=== PATIENT | female | born 1955 | race Caucasian/White ===

== ENCOUNTER 2018-01-13 11:07 | Inpatient (IN) | payer OTHER ==
[2018-01-13] MEDS: morphine 4 MG/ML VIAL IV (11:37)
[2018-01-13] MEDS: ONDANSETRON 4 MG INJ IV (11:38)
[2018-01-13] MEDS: SOD CHLORIDE 0.9% 1,000 ML IV (11:39)
[2018-01-13 11:47] LABS: ADD MAN DIFF? NO
[2018-01-13 11:48] LABS: WHITE BLOOD COUNT 6.1 10^3/ul (4.8-10.8)
[2018-01-13 11:48] LABS: BASOPHILS % 0.5 % (0.0-2.0); EOSINOPHILS % 0.7 % (0.0-7.0); HEMATOCRIT 34.5 % (37.0-47.0); HEMOGLOBIN 11.5 g/dl (12.0-16.0); LYMPHOCYTES # 1.7 10^3/ul (0.8-2.9); LYMPHOCYTES % 27.7 % (15.0-51.0); MEAN CORPUSCULAR HEMOGLOBIN 32.4 pg (29.0-33.0); MEAN CORPUSCULAR HGB CONC 33.3 g/dl (32.0-37.0); MEAN CORPUSCULAR VOLUME 97.2 fl (82.0-101.0); MEAN PLATELET VOLUME 10.6 fl (7.4-10.4); MONOCYTE # 0.3 10^3/ul (0.3-0.9); MONOCYTES % 5.4 % (0.0-11.0); NEUTROPHILS % 65.4 % (39.0-77.0); PLATELET COUNT 235 10^3/UL (140-415); RED BLOOD COUNT 3.55 10^6/ul (4.20-5.40); RED CELL DISTRIBUTION WIDTH 12.4 % (11.5-14.5)
[2018-01-13 12:07] LABS: INR 0.89; PROTIME 12.1 Sec (11.9-14.9); PT RATIO 0.9
[2018-01-13 12:09] LABS: ANION GAP 5 (5-13)
[2018-01-13 12:10] LABS: BLOOD UREA NITROGEN 17 mg/dl (7-20); CALCIUM 9.8 mg/dl (8.4-10.2); CARBON DIOXIDE 31 mmol/L (21-31); CHLORIDE 104 mmol/L (97-110); CREATINE KINASE 39 IU/L (23-200); CREATININE 0.48 mg/dl (0.44-1.00); GLUCOSE 240 mg/dl (70-220); POTASSIUM 4.5 mmol/L (3.5-5.1); SODIUM 140 mmol/L (135-144)
[2018-01-13] MEDS: IOHEXOL 300MG/ML 150 ML BTL (12:15)
[2018-01-13] MEDS: SOD CHLORIDE 0.9% 100 ML (12:16)
[2018-01-13] MEDS: IOHEXOL 100 ML (12:16)
[2018-01-13 12:20] LABS: B-TYPE NATRIURETIC PEPTIDE 170 PG/ML (0-125); CK INDEX 0.6; CK-MB < 0.22 ng/ml (0.0-2.4); TROPONIN-I < 0.012 ng/ml (0.000-0.120)
[2018-01-13] MEDS ORDERED: ONDANSETRON 4 MG INJ IV ×2 (13:30→14:00)
[2018-01-13] MEDS ORDERED: ACETAMINOPHEN 325 MG TAB PO (13:30)
[2018-01-13] MEDS: ASPIRIN 81 MG TAB PO (13:58)
[2018-01-13] MEDS ORDERED: NACL 0.9% 3 ML SYG IV (14:00)
[2018-01-13] MEDS: INSULIN ASPART [NOVOLOG] 3 ML PEN SC ×2 (17:30→20:20)
[2018-01-13] MEDS: metFORMIN 500 MG TAB PO (17:39)
[2018-01-13 17:57] LABS: CREATINE KINASE 42 IU/L (23-200)
[2018-01-13 18:09] LABS: CK INDEX 0.5; CK-MB < 0.22 ng/ml (0.0-2.4); TROPONIN-I < 0.012 ng/ml (0.000-0.120)
[2018-01-13] MEDS: ATORVASTATIN 40 MG TAB PO (20:19)
[2018-01-13 22:10] LABS: CREATINE KINASE 41 IU/L (23-200)
[2018-01-13 22:23] LABS: CK INDEX 0.5; CK-MB < 0.22 ng/ml (0.0-2.4); TROPONIN-I < 0.012 ng/ml (0.000-0.120)
[2018-01-13] MEDS: morphine 2 MG INJ IV (23:40)
[2018-01-14 00:06] LABS: CREATINE KINASE 43 IU/L (23-200)
[2018-01-14 00:19] LABS: CK INDEX 0.5; CK-MB < 0.22 ng/ml (0.0-2.4); TROPONIN-I < 0.012 ng/ml (0.000-0.120)
[2018-01-14 05:11] LABS: ADD MAN DIFF? NO
[2018-01-14 05:13] LABS: BASOPHILS % 0.5 % (0.0-2.0); EOSINOPHILS # 0.1 10^3/ul (0.0-0.5); EOSINOPHILS % 1.9 % (0.0-7.0); HEMATOCRIT 31.5 % (37.0-47.0); HEMOGLOBIN 10.5 g/dl (12.0-16.0); LYMPHOCYTES # 2.5 10^3/ul (0.8-2.9); LYMPHOCYTES % 38.9 % (15.0-51.0); MEAN CORPUSCULAR HEMOGLOBIN 32.5 pg (29.0-33.0); MEAN CORPUSCULAR HGB CONC 33.3 g/dl (32.0-37.0); MEAN CORPUSCULAR VOLUME 97.5 fl (82.0-101.0); MEAN PLATELET VOLUME 10.7 fl (7.4-10.4); MONOCYTE # 0.4 10^3/ul (0.3-0.9); MONOCYTES % 6.4 % (0.0-11.0); NEUTROPHIL # 3.3 10^3/ul (1.6-7.5); PLATELET COUNT 212 10^3/UL (140-415); RED BLOOD COUNT 3.23 10^6/ul (4.20-5.40); RED CELL DISTRIBUTION WIDTH 12.4 % (11.5-14.5)
[2018-01-14 05:13] LABS: WHITE BLOOD COUNT 6.4 10^3/ul (4.8-10.8)
[2018-01-14 05:50] LABS: ALANINE AMINOTRANSFERASE 28 IU/L (13-69); ALBUMIN 3.3 g/dl (3.3-4.9); ALBUMIN/GLOBULIN RATIO 0.97; ALKALINE PHOSPHATASE 45 IU/L (42-121); ANION GAP 9 (5-13); ASPARTATE AMINO TRANSFERASE 16 IU/L (15-46); BILIRUBIN,INDIRECT 0.4 mg/dl (0-1.1); BILIRUBIN,TOTAL 0.4 mg/dl (0.2-1.3); BLOOD UREA NITROGEN 15 mg/dl (7-20); CALCIUM 9.1 mg/dl (8.4-10.2); CARBON DIOXIDE 27 mmol/L (21-31); CHLORIDE 106 mmol/L (97-110); CREATININE 0.48 mg/dl (0.44-1.00); GLUCOSE 110 mg/dl (70-220); POTASSIUM 4.2 mmol/L (3.5-5.1); SODIUM 142 mmol/L (135-144); TOTAL PROTEIN 6.7 g/dl (6.1-8.1)
[2018-01-14] MEDS: INSULIN ASPART [NOVOLOG] 3 ML PEN SC ×4 (07:45→21:00)
[2018-01-14] MEDS: LINAGLIPTIN 5 MG TABLET PO (08:02)
[2018-01-14] MEDS: metFORMIN 500 MG TAB PO ×2 (08:02→17:45)
[2018-01-14] MEDS: LOSARTAN 25 MG TAB PO (09:12)
[2018-01-14] MEDS: ASPIRIN 81 MG TAB PO (09:12)
[2018-01-14] MEDS: ENOXAPARIN 30 MG/0.3 ML SYG SC (09:18)
[2018-01-14 10:24] LABS: HEMOGLOBIN A1C 6.2 % (0-5.9)
[2018-01-14] MEDS: ATORVASTATIN 40 MG TAB PO (21:45)
[2018-01-15] MEDS: morphine 2 MG INJ IV (05:20)
[2018-01-15] MEDS: INSULIN ASPART [NOVOLOG] 3 ML PEN SC ×3 (08:00→17:15)
[2018-01-15] MEDS: metFORMIN 500 MG TAB PO ×2 (08:11→17:16)
[2018-01-15] MEDS: LOSARTAN 25 MG TAB PO (08:12)
[2018-01-15] MEDS: LINAGLIPTIN 5 MG TABLET PO (08:12)
[2018-01-15] MEDS: ASPIRIN 81 MG TAB PO (08:12)
[2018-01-15] MEDS: ENOXAPARIN 30 MG/0.3 ML SYG SC (09:21)
== END 2018-01-15 19:00 | disposition home or self-care (01) | DRG 313 ==
LOC: E/R 11:07 → 6WM 15:35
DX: R07.9 Chest pain, unspecified (principal); E11.9 Type 2 diabetes mellitus without complications; I10 Essential (primary) hypertension; E78.5 Hyperlipidemia, unspecified
CPT/HCPCS: 36415; 71045; 71275; 80048; 80053; 82550; 82553; 82962; 83036; 83880; 84484; 85025; 85610; 85730; 93005; 93306; 96374; 96375; 99285-25; G0378